=== PATIENT | female | born 1990 | race Caucasian/White ===

== ENCOUNTER 2017-03-17 17:51 | Emergency (ER) | payer OTHER ==
[2017-03-17] MEDS ORDERED: DEXAMETHASONE SOD PHOS INJ 10 MG/1 ML VIAL IV ONE (18:27)
[2017-03-17] MEDS ORDERED: HALOPERIDOL LACTATE INJ 5 MG/1 ML VIAL IV ONE (18:27)
[2017-03-17] MEDS ORDERED: KETOROLAC TROMETHAMINE INJ/PF 30 MG/1 ML SDV IV ONE (18:28)
--- NOTE | 2017-03-17 18:47 | ER Document Report ---
ED General - General Chief Complaint: Probable Seizure Stated Complaint: POSSIBLE SEIZURES Time Seen by Provider: 03/17/17 18:26 Notes: Patient is a 26-year-old female with a past medical history of PNES, anxiety, depression, who presents after having a seizure-like episode prior to arrival while at work. Patient has a history of frequent episodes in which becomes extremely anxious or depressed in which she has body shaking. She has been diagnosed as having pseudoseizures in the past and has never been on antiepileptics. She reports significant stressors in her life including ongoing divorce. She did not have a postictal period. On arrival, patient is complaining of a migraine headache which she states was present for most of the past 24 hours. She reports that the headache was gradual in onset and has gotten progressively worse since that time. Reports is a typical headache for her. She describes it as a constant, dull, throbbing pain mostly towards the right side of her head. Lights and sounds worsen the pain. She has tried ibuprofen without any improvement of the pain. She denies any focal weakness or numbness. No fever or confusion. She has not seen her primary doctor regarding today's concerns. TRAVEL OUTSIDE OF THE [place] IN LAST 30 DAYS: No - Related Data Allergies/Adverse Reactions: morphine Allergy (Verified 01/16/17 14:44) hydrocodone Allergy (Uncoded 01/16/17 15:08) Past Medical History - General Information source: Patient - Social History Smoking Status: Never Smoker Frequency of alcohol use: None Drug Abuse: None Lives with: Family Family History: Reviewed & Not Pertinent Patient has suicidal ideation: No Patient has homicidal ideation: No Neurological Medical History: Reports: Hx Migraine, Hx Seizures Renal/ Medical History: Denies: Hx Peritoneal Dialysis Psychiatric Medical History: Reports: Hx Depression Past Surgical History: Reports: Hx Gynecologic Surgery - laproscopy X 3 for endometriosis - Immunizations Hx Diphtheria, Pertussis, Tetanus Vaccination: Yes Review of Systems - Review of Systems Notes: Constitutional: Negative for fever. HENT: Negative for sore throat. Eyes: Negative for visual changes. Cardiovascular: Negative for chest pain. Respiratory: Negative for shortness of breath. Gastrointestinal: Negative for abdominal pain, vomiting or diarrhea. Genitourinary: Negative for dysuria. Musculoskeletal: Negative for back pain. Skin: Negative for rash. Neurological: Positive for headaches. 10 point ROS negative except as marked above and in HPI. Physical Exam - Vital signs Vitals: Temp Pulse Resp BP Pulse Ox 97.5 F 83 16 126/81 H 93 03/17/17 18:13 03/17/17 18:13 03/17/17 18:13 03/17/17 18:13 03/17/17 18:13 Interpretation: Normal Notes: PHYSICAL EXAMINATION: GENERAL: Well-appearing, well-nourished and in no acute distress. HEAD: Atraumatic, normocephalic. EYES: Pupils equal round and reactive to light, extraocular movements intact, sclera anicteric, conjunctiva are normal. ENT: nares patent, oropharynx clear without exudates. Moist mucous membranes. NECK: Normal range of motion, supple without lymphadenopathy LUNGS: Breath sounds clear to auscultation bilaterally and equal. No wheezes rales or rhonchi. HEART: Regular rate and rhythm without murmurs ABDOMEN: Soft, nontender, normoactive bowel sounds. No guarding, no rebound. No masses appreciated. EXTREMITIES: Normal range of motion, no pitting or edema. No cyanosis. NEUROLOGICAL: Face symmetric. Tongue protrudes midline. Extraocular motions intact. Pupils are 2 mm and equally reactive. Normal speech, normal gait. 5 out of 5 strength in both the distal and proximal upper and lower extremities bilaterally. Sensation is grossly intact throughout. Finger to nose testing normal. Pronator drift normal. PSYCH: Somewhat anxious SKIN: Warm, Dry, normal turgor, no rashes or lesions noted. Course - Re-evaluation Re-evalutation: 03/17/17 18:46 Patient presents with symptoms had a history consistent with PNES. Clinical history is inconsistent with an epileptic seizure and I do not believe any imaging or labs as indicated. Neurologic exam unremarkable without any focal neurologic deficits. No trauma sustained during today's episode. The patient does have a history of similar episodes in the past as well as a psychiatric history. Patient also complains of a headache that appears to be most consistent with a migrainous type headache. Headache was not maximal in onset, patient has no focal neurologic deficits, no nuchal rigidity, vital signs within normal limits, no papilledema, and patient is overall well in appearance. Based on clinical history and examination I do not suspect an acute subarachnoid hemorrhage, dural venous sinus thrombosis, acute meningitis, or intercranial mass. Given my low clinical suspicion for any acute life- threatening etiology, I do not feel advanced neuro imaging or laboratory testing is indicated at this time. Will proceed with headache cocktail and reassess. 03/17/17 20:43 Patient has had resolution of her headache. At this time will discharge with return precautions and follow-up recommendations. Verbal discharge instructions given a the bedside and opportunity for questions given. Medication warnings reviewed. Patient is in agreement with this plan and has verbalized understanding of return precautions and the need for primary care follow-up in the next 24-72 hours. - Vital Signs Vital signs: Temp Pulse Resp BP Pulse Ox 97.5 F 80 16 124/64 98 03/17/17 18:13 03/17/17 21:02 03/17/17 21:02 03/17/17 21:02 03/17/17 21:02 Discharge - Discharge Clinical Impression: Pseudoseizure Migraine headache Qualifiers: Migraine type: unspecified Status migrainosus presence: with status migrainosus Intractability: not intractable Qualified Code(s): G43.901 - Migraine, unspecified, not intractable, with status migrainosus Condition: Good Disposition: HOME, SELF-CARE Additional Instructions: Your episode of shaking today was likely due to something called PNES, also known as pseudogenic non-epileptiform seizures. These are often also often referred to as pseudoseizures. These are not voluntary. However, they are not coming from an abnormal focus in your brain like somebody who has true epilepsy. These episodes can often be triggered by stress, anxiety, or not taking your normal medications. Please follow-up with your primary care doctor at your earliest ability. Return for any additional concerns you may have including if you develop a fever, nausea, vomiting, pass out, have focal weakness or numbness, or any other symptoms that are concerning to you. You were seen today for a migraine headache. Please follow-up with your primary care doctor regarding today's ED visit. Return to emergency department immediately if you develop a headache that gets to its maximum severity within 20 minutes of onset, you pass out, you develop weakness, numbness, changes in your vision, become unable to keep any fluids down for more than 12 hours, or develop a fever greater than 100.4 degrees Fahrenheit. If you develop a similar migraine headache in the future I recommend that you immediately take 600 mg of ibuprofen and 50 mg of Benadryl and go to sleep as quickly as possible. This can often prevent your migraine headache from becoming severe.
[2017-03-17 21:03] VITALS: BP 124/64
== END 2017-03-17 21:04 | disposition home or self-care (01) ==
LOC: ER 17:51
DX: G43.901 Migraine, unspecified, not intractable, with status migrainosus (principal); G40.89 Other seizures; F41.9 Anxiety disorder, unspecified; F32.9 Major depressive disorder, single episode, unspecified
CPT/HCPCS: 99284; 96374; 96375; J1630; J1885; J1100

== ENCOUNTER 2017-03-20 19:57 | Emergency (ER) | payer OTHER ==
--- NOTE | 2017-03-20 20:58 | ER Document Report ---
ED Medical Screen (RME) - General Mode of Arrival: Ambulatory Information source: Patient TRAVEL OUTSIDE OF THE [place] IN LAST 30 DAYS: No <COY ARRIAGA - Last Filed: 03/20/17 20:53> <LIZZY ESPARZA - Last Filed: 03/20/17 21:02> - General Chief Complaint: Probable Seizure Stated Complaint: HEAD PAIN Time Seen by Provider: 03/20/17 20:22 Notes: Patient is a 26 year old female presenting to the emergency department complaining of headaches and seizures. Patient states that she has had headaches for 2 months which seem to be worsening. Patient describes her headaches as throbbing. Patient states that she had a pain induced seizure today where she lost consciousness, tensed up, as well as lost bladder control. Patient states she also had a previous seizure this week. Patients associated symptoms include blurry vision, and dizziness when moving. Patient denies fever. Patient states that she was diagnosed with migraines when she was 5 year old. Patient also states that she has had intermittent seizures for years. (COY ARRIAGA) - Related Data Allergies/Adverse Reactions: morphine Allergy (Verified 01/16/17 14:44) hydrocodone Allergy (Uncoded 01/16/17 15:08) Past Medical History - General Information source: Patient - Social History Cigarette use (# per day): No Chew tobacco use (# tins/day): No Frequency of alcohol use: None Drug Abuse: None Neurological Medical History: Reports: Hx Migraine, Hx Seizures Renal/ Medical History: Denies: Hx Peritoneal Dialysis Psychiatric Medical History: Reports: Hx Depression Past Surgical History: Reports: Hx Gynecologic Surgery - laproscopy X 3 for endometriosis - Immunizations Hx Diphtheria, Pertussis, Tetanus Vaccination: Yes <COY ARRIAGA - Last Filed: 03/20/17 20:53> Review of Systems - Review of Systems Constitutional: No symptoms reported EENT: See HPI, Blurred vision Cardiovascular: See HPI, Dizziness Respiratory: No symptoms reported Gastrointestinal: No symptoms reported Genitourinary: No symptoms reported Female Genitourinary: No symptoms reported Musculoskeletal: No symptoms reported Skin: No symptoms reported Hematologic/Lymphatic: No symptoms reported Neurological/Psychological: See HPI, Seizure, Lost consciousness, Headaches <COY ARRIAGA - Last Filed: 03/20/17 20:53> Physical Exam - General General appearance: Other - Patient was tearful during exam - HEENT Head: Normocephalic, Atraumatic Pupils: PERRL - Respiratory Respiratory status: No respiratory distress Chest status: Nontender Breath sounds: Normal - Cardiovascular Rhythm: Regular Heart sounds: Normal auscultation Murmur: No Friction rub: No Gallop: None auscultated - Extremities General upper extremity: Normal ROM General lower extremity: Normal ROM - Psychological Associated symptoms: Tearful - Skin Skin Temperature: Warm Skin Moisture: Dry <COY ARRIAGA - Last Filed: 03/20/17 20:53> - Vital signs Vitals: Temp Pulse Resp BP Pulse Ox 98.3 F 98 16 117/86 H 99 03/20/17 20:04 03/20/17 20:04 03/20/17 20:04 03/20/17 20:04 03/20/17 20:04 Course - Laboratory Result Diagrams: 03/20/17 20:48 03/20/17 20:48 <LIZZY ESPARZA - Last Filed: 03/20/17 21:02> - Vital Signs Vital signs: Temp Pulse Resp BP Pulse Ox 98.3 F 98 16 117/86 H 99 03/20/17 20:04 03/20/17 20:04 03/20/17 20:04 03/20/17 20:04 03/20/17 20:04 Scribe Documentation - Scribe Written by Scribe:: Junior Davis, 03/20/2017 19:59 acting as scribe for :: Mode <COY ARRIAGA - Last Filed: 03/20/17 20:53>
[2017-03-20 21:06] LABS: ABSOLUTE BASOPHILS # (AUTO) 0.1 10^3/uL (0.0-0.2); ABSOLUTE EOSINOPHILS # (AUTO) 0.1 10^3/uL (0.0-0.6); ABSOLUTE LYMPHOCYTES (AUTO) 2.3 10^3/uL (0.5-4.7); ABSOLUTE MONOCYTES (AUTO) 0.5 10^3/uL (0.1-1.4); ABSOLUTE NEUT (AUTO) 6.6 10^3/uL (1.7-8.2); BASOPHILS % (AUTO) 0.6 % (0-2); EOSINOPHILS % (AUTO) 1.5 % (0-6); HEMATOCRIT 42.4 % (36.0-47.0); HGB HCT DIFFERENCE 2.6; LYMPHOCYTES % (AUTO) 24.5 % (13-45); MEAN CORPUSCULAR HEMOGLOBIN 30.1 pg (27.0-33.4); MEAN CORPUSCULAR HGB CONC 35.3 g/dL (32.0-36.0); MEAN CORPUSCULAR VOLUME 85 fl (80-97); RED BLOOD COUNT 4.97 10^6/uL (3.72-5.28); SEGMENTED NEUTROPHILS % (AUTO) 68.4 % (42-78); WHITE BLOOD COUNT 9.6 10^3/uL (4.0-10.5)
[2017-03-20 21:25] LABS: ALANINE AMINOTRANSFERASE 21 U/L (9-52); ALBUMIN 4.7 g/dL (3.5-5.0); ALKALINE PHOSPHATASE 76 U/L (38-126); ANION GAP 15 (5-19); ASPARTATE AMINO TRANSFERASE 20 U/L (14-36); BILIRUBIN,DIRECT 0.6 mg/dL (0.0-0.4); BILIRUBIN,TOTAL 1.1 mg/dL (0.2-1.3); BLOOD UREA NITROGEN 13 mg/dL (7-20); CALCIUM 9.7 mg/dL (8.4-10.2); CARBON DIOXIDE 23 mmol/L (22-30); CHLORIDE 104 mmol/L (98-107); CREATININE RESULT 0.64 mg/dL (0.52-1.25); GLUCOSE 76 mg/dL (75-110); POTASSIUM 3.6 mmol/L (3.6-5.0); SODIUM 141.6 mmol/L (137-145); TOTAL PROTEIN 7.4 g/dL (6.3-8.2)
[2017-03-20 21:26] LABS: ALCOHOL < 10 mg/dL (NONE DETECTED)
[2017-03-20] MEDS ORDERED: NORMAL SALINE 1000 ML 1,000 ML IV PRN ×2 (21:28→22:51)
[2017-03-20] MEDS ORDERED: LORAZEPAM INJ 2 MG/1 ML VIAL IV ONE (21:28)
[2017-03-20] MEDS ORDERED: ONDANSETRON HCL INJ/PF 4 MG/2 ML SDV IV ONE (21:28)
[2017-03-20] MEDS ORDERED: KETOROLAC TROMETHAMINE INJ/PF 30 MG/1 ML SDV IV ONE (21:28)
--- NOTE | 2017-03-20 21:31 | RADIOLOGY REPORT (SQ) ---
EXAM DESCRIPTION: CT HEAD WITHOUT COMPLETED DATE/TIME: 03/20/2017 9:12 pm REASON FOR STUDY: increased seizure frequency COMPARISON: 01/16/2017 TECHNIQUE: Axial images acquired through the brain without intravenous contrast. Images reviewed wi th bone, brain and subdural windows. Images stored on PACS. All CT scanners at this facility use dose modulation, iterative reconstruction, and/or weight based d osing when appropriate to reduce radiation dose to as low as reasonably achievable (ALARA). [facility]: Dose Right [facility]: CareDose [facility]: Dose Right [facility]: Teradose 4D [facility]: [employer] RADIATION DOSE: Up-to-date CT equipment and radiation dose reduction techniques were employed. CTDIv ol: 64.6 mGy. DLP: 1163 mGy-cm. mGy. LIMITATIONS: None. FINDINGS: VENTRICLES: Normal size and contour. CEREBRUM: No masses. No hemorrhage. No midline shift. No evidence for acute infarction. Normal gra y/white matter differentiation. No areas of low density in the white matter. CEREBELLUM: No masses. No hemorrhage. No alteration of density. No evidence for acute infarction. EXTRAAXIAL SPACES: No fluid collections. No masses. ORBITS AND GLOBE: No intra- or extraconal masses. Normal contour of globe without masses. CALVARIUM: No fracture. PARANASAL SINUSES: No fluid or mucosal thickening. SOFT TISSUES: No mass or hematoma. OTHER: No other significant finding. IMPRESSION: NORMAL BRAIN CT WITHOUT CONTRAST. EVIDENCE OF ACUTE STROKE: NO. COMMENT: Quality ID # [id number]: Final reports with documentation of one or more dose reduction techniques (e.g., Automated exposure control, adjustment of the mA and/or kV according to patient size, use of iterative reconstruction technique) TECHNICAL DOCUMENTATION: JOB ID: [id number] [employer]- All Rights Reserved
--- NOTE | 2017-03-20 21:33 | ER Document Report ---
ED Headache - General Chief Complaint: Probable Seizure Stated Complaint: HEAD PAIN Time Seen by Provider: 03/20/17 20:22 Mode of Arrival: Ambulatory Information source: Patient TRAVEL OUTSIDE OF THE [place] IN LAST 30 DAYS: No - HPI Patient complains to provider of: Headache, "Migraine" Patient reports: Hx chronic headaches Onset: Other - 2 weeks Onset was: Gradual Timing: Still present Quality of pain: Achy, Pressure Severity: Moderate Pain Level: 3 Associated symptoms: Nausea/vomiting Similar symptoms previously: Yes Recently seen / treated by doctor: Yes Notes: Patient is a 26-year-old female presenting to the emergency room today complaining of migraine headache that has been going on for 2 weeks, she states she had a seizure a few days ago and was seen in this department after that, which was determined to be likely pseudoseizure, she states she did hit her head during the fall and has some pain on the left neck muscles, she reports associated nausea with the headache but denies any vomiting, no fevers, denies being , patient has never been on any type of seizure medication but does report that she had seizures when she was 4 years old as well - Related Data Allergies/Adverse Reactions: morphine Allergy (Verified 01/16/17 14:44) hydrocodone Allergy (Uncoded 01/16/17 15:08) Past Medical History - General Information source: Patient - Social History Smoking Status: Never Smoker Cigarette use (# per day): No Chew tobacco use (# tins/day): No Frequency of alcohol use: None Drug Abuse: None Family History: Reviewed & Not Pertinent Patient has suicidal ideation: No Patient has homicidal ideation: No Neurological Medical History: Reports: Hx Migraine, Hx Seizures Renal/ Medical History: Denies: Hx Peritoneal Dialysis Psychiatric Medical History: Reports: Hx Depression Past Surgical History: Reports: Hx Gynecologic Surgery - laproscopy X 3 for endometriosis - Immunizations Hx Diphtheria, Pertussis, Tetanus Vaccination: Yes Review of Systems - Review of Systems Constitutional: No symptoms reported EENT: No symptoms reported Cardiovascular: No symptoms reported Respiratory: No symptoms reported Gastrointestinal: No symptoms reported Genitourinary: No symptoms reported Female Genitourinary: No symptoms reported Musculoskeletal: Neck pain Skin: No symptoms reported Hematologic/Lymphatic: No symptoms reported Neurological/Psychological: See HPI -: Yes All other systems reviewed and negative Physical Exam - Vital signs Vitals: Temp Pulse Resp BP Pulse Ox 98.3 F 98 16 117/86 H 99 03/20/17 20:04 03/20/17 20:04 03/20/17 20:04 03/20/17 20:04 03/20/17 20:04 Interpretation: Normal - General General appearance: Appears well, Alert - HEENT Head: Normocephalic, Atraumatic Eyes: Normal Conjunctiva: Normal Extraocular movements intact: Yes Eyelashes: Normal Pupils: PERRL Neck: Other - Tenderness to palpate in the left cervical paraspinal muscles, no midline tenderness or deformity - Respiratory Respiratory status: No respiratory distress Chest status: Nontender Breath sounds: Normal Chest palpation: Normal - Cardiovascular Rhythm: Regular Heart sounds: Normal auscultation Murmur: No - Abdominal Inspection: Normal Distension: No distension Bowel sounds: Normal Tenderness: Nontender Organomegaly: No organomegaly - Back Back: Normal, Nontender - Extremities General upper extremity: Normal inspection, Nontender, Normal color, Normal ROM , Normal temperature General lower extremity: Normal inspection, Nontender, Normal color, Normal ROM , Normal temperature, Normal weight bearing. No: Kalani's sign - Neurological Neuro grossly intact: Yes Cognition: Normal Orientation: AAOx4 Spenser Coma Scale Eye Opening: Spontaneous Spenser Coma Scale Verbal: Oriented Spenser Coma Scale Motor: Obeys Commands Spenser Coma Scale Total: 15 Speech: Normal Motor strength normal: LUE, RUE, LLE, RLE Sensory: Normal - Psychological Associated symptoms: Normal affect, Normal mood - Skin Skin Temperature: Warm Skin Moisture: Dry Skin Color: Normal Course - Re-evaluation Re-evalutation: 03/20/17 23:24 Patient reports feeling much better, headache is resolved, lab and imaging findings were discussed at bedside which are unremarkable, patient will be discharged with instructions for follow-up, advised to return if any worsening symptoms or additional concerns, patient acknowledges understanding and agreement with this plan, she does report that she is moving to [place] in the near future and has a follow-up with a neurologist there in 2 weeks - Vital Signs Vital signs: Temp Pulse Resp BP Pulse Ox 98.3 F 98 20 109/94 H 100 03/20/17 20:04 03/20/17 20:04 03/20/17 21:01 03/20/17 21:01 03/20/17 21:01 - Laboratory Result Diagrams: 03/20/17 20:48 03/20/17 20:48 Laboratory results interpreted by me: 03/20/17 03/20/17 20:48 21:30 Direct Bilirubin 0.6 H Urine Ketones 80 H - Diagnostic Test Radiology reviewed: Image reviewed, Reports reviewed - EKG Interpretation by Me EKG shows normal: Sinus rhythm Rate: Normal Rhythm: NSR Discharge - Discharge Clinical Impression: Pseudoseizure Migraine headache Qualifiers: Migraine type: other Status migrainosus presence: without status migrainosus Intractability: not intractable Qualified Code(s): G43.809 - Other migraine, not intractable, without status migrainosus Condition: Stable Disposition: HOME, SELF-CARE Instructions: Headache ([facility]) Additional Instructions: Follow up with your primary care provider in one to 2 days. Return to the emergency room immediately if symptoms worsen or any additional concerns.
[2017-03-20 22:31] LABS: APPEARANCE,URINE CLOUDY; BILIRUBIN,URINE NEGATIVE (NEGATIVE); GLUCOSE, URINE NEGATIVE (NEGATIVE); KETONES,URINE 80 mg/dL (NEGATIVE); LEUKOCYTE ESTERASE,URINE NEGATIVE (NEGATIVE); NITRITE,URINE NEGATIVE (NEGATIVE); PROTEIN,URINE NEGATIVE (NEGATIVE); URINE SPECIFIC GRAVITY 1.026; UROBILINOGEN,URINE NEGATIVE mg/dL (<2.0)
[2017-03-20 22:42] LABS: URINE BARBITURATES SCREEN NEGATIVE; URINE METHADONE SCREEN NEGATIVE; URINE OPIATES LOW NEGATIVE; URINE PHENCYCLIDINE SCREEN NEGATIVE
--- NOTE | 2017-03-20 22:47 | EKG REPORT ---
SEVERITY:- ABNORMAL ECG - SINUS TACHYCARDIA MULTIFORM VENTRICULAR PREMATURE COMPLEXES NONSPECIFIC T ABNORMALITIES, INFERIOR LEADS : Confirmed by: Miguel Galvez 20-Mar-2017 22:46:32
[2017-03-20] MEDS ORDERED: DIPHENHYDRAMINE HCL 50 MG/ML VIAL IV ONE (22:52)
[2017-03-20] MEDS ORDERED: METOCLOPRAMIDE HCL INJ/PF 10 MG/2 ML SDV IV ONE (22:52)
[2017-03-20 23:32] VITALS: BP 114/73
== END 2017-03-20 23:33 | disposition home or self-care (01) ==
LOC: ER 19:57
DX: G43.809 Other migraine, not intractable, without status migrainosus (principal); R56.9 Unspecified convulsions; R11.2 Nausea with vomiting, unspecified
CPT/HCPCS: 93005; 99284; 96361; 96374; 96375; 36415; 80307 ×2; 84703; 85025; 80053; 81001; 70450; 93010; J1200; J1885; J2765; J2060; J2405; J7030